=== PATIENT | male | born 1955 | race Caucasian/White ===

== ENCOUNTER 2023-05-02 13:02 | Emergency (ER) | payer BC, MEDICARE, OTHER | END 2023-05-02 14:00 | disposition home or self-care (01) | LOC: MW.ED 13:02 | DX: K04.7 Periapical abscess without sinus (principal); I10 Essential (primary) hypertension; E78.00 Pure hypercholesterolemia, unspecified; Z87.891 Personal history of nicotine dependence; Z86.73 Personal history of transient ischemic attack (TIA), and cerebral infarction without residual deficits | CPT/HCPCS: 99282; 99283 ==

== ENCOUNTER 2023-11-14 08:29 | Day surgery (SDC) | payer MEDICARE ==
[2023-11-14] MEDS ORDERED: propofoL 50 ML ONE (08:47)
[2023-11-14] MEDS ORDERED: Lidocaine 2% 5 ML SDV ONE (08:48)
[2023-11-14] MEDS: Lactated Ringers 1,000 ML IV SCH (09:23)
== END 2023-11-14 11:10 | disposition home or self-care (01) ==
LOC: MW.SDS 08:29
PROVIDERS: ATTEND Surgery
DX: Z12.11 Encounter for screening for malignant neoplasm of colon (principal); D12.6 Benign neoplasm of colon, unspecified; K64.8 Other hemorrhoids; I10 Essential (primary) hypertension; E78.00 Pure hypercholesterolemia, unspecified; Z79.899 Other long term (current) drug therapy
CPT/HCPCS: 45380; J2704; J7120; 88305; J3490